=== PATIENT | female | born 1965 | race Caucasian/White ===

== ENCOUNTER 2024-06-29 07:39 | Day surgery (SDC) | payer OTHER ==
[~2024-06-29] VITALS: Ht 167.6 cm; Wt 76.3 kg
[~2024-06-29 07:39] MED LIST: CAPT25TA3 PO; DOCU-412 PO
[2024-06-29] MEDS: SODIUM CHLORIDE 0.9% 1,000 ML IV ONE (08:18)
[2024-06-29] MEDS ORDERED: OXYGEN THERAPY IH SCH (09:45)
[2024-06-29] MEDS ORDERED: LIDOCAINE/PF 2% 5 ML VIAL IM ONE (12:00)
[2024-06-29] MEDS ORDERED: PROPOFOL 1% 20 ML VIAL IVP ONE (12:00)
== END 2024-06-29 11:00 | disposition home or self-care (01) ==
LOC: SURGERY 07:39
PROVIDERS: ATTEND Specialist
DX: R10.13 Epigastric pain (principal); K29.50 Unspecified chronic gastritis without bleeding; B96.81 Helicobacter pylori [H. pylori] as the cause of diseases classified elsewhere; I10 Essential (primary) hypertension; Z79.899 Other long term (current) drug therapy; Z90.49 Acquired absence of other specified parts of digestive tract; Z98.890 Other specified postprocedural states
CPT/HCPCS: 43239; 88313; 88305; 88312; C1769; J2704; J3490

== ENCOUNTER 2024-08-03 06:30 | Day surgery (SDC) | payer OTHER ==
[~2024-08-03] VITALS: Ht 167.6 cm; Wt 72.6 kg
[~2024-08-03 06:30] MED LIST changes: +CHOL25TA4 PO; -DOCU-412 PO; +SODIUM CHLORIDE 0.9% 1,000 ML ONE
[2024-08-03] MEDS ORDERED: GLYCOPYRROLATE 0.2 MG/ML VIAL ONE (06:47)
[2024-08-03] MEDS ORDERED: LIDOCAINE/PF 2% 5 ML VIAL ONE (06:47)
[2024-08-03] MEDS ORDERED: PROPOFOL 1% 20 ML VIAL IVP ONE (06:47)
[2024-08-03] MEDS ORDERED: EPHEDrine SULFATE 50 MG/ML VIAL ONE (06:47)
[2024-08-03] MEDS: SODIUM CHLORIDE 0.9% 1,000 ML IV ONE (07:27)
[2024-08-03] MEDS ORDERED: FentaNYL CITRATE PF 100 MCG/2 ML VIAL IVP PRN (09:45)
[2024-08-03] MEDS ORDERED: HYDROmorphone HCL 2 MG/ML SYRINGE IVP PRN (09:45)
[2024-08-03] MEDS ORDERED: MEPERIDINE-PF 25 MG/ML VIAL IVP PRN (09:45)
[2024-08-03] MEDS ORDERED: OXYGEN THERAPY IH SCH ×2 (09:45→20:00)
== END 2024-08-03 11:00 | disposition home or self-care (01) ==
LOC: SURGERY 06:30
PROVIDERS: ATTEND Specialist
DX: Z12.11 Encounter for screening for malignant neoplasm of colon (principal); K64.8 Other hemorrhoids; I10 Essential (primary) hypertension; Z79.899 Other long term (current) drug therapy; Z90.49 Acquired absence of other specified parts of digestive tract; Z98.890 Other specified postprocedural states
CPT/HCPCS: 45378; J2704; J3490 ×3; J7030